=== PATIENT | male | born 1990 | race Caucasian/White ===

== ENCOUNTER 2016-08-05 16:16 | Emergency (ER) | payer MEDICAID ==
[~2016-08-05] VITALS: Ht 167.6 cm; Wt 100.0 kg
[~2016-08-05 16:16] MED LIST: CEPH-443 PO; CIPR500T4 PO; GENT5DRO28 RIGHT EYE; HYDR-3498 PO; Hydrocodone Bit/Acetaminophen PO; IBUP-1542 PO; METR500T PO
[2016-08-05] MEDS ORDERED: SOD CHLORIDE 0.9% 1,000 ML IV STA (16:41)
[2016-08-05] MEDS ORDERED: morphine 4 MG/ML VIAL IV STA ×2 (16:41→17:14)
[2016-08-05] MEDS ORDERED: ONDANSETRON 4 MG INJ IV STA ×2 (16:41→17:14)
--- NOTE | 2016-08-05 17:03 | ERD ---
ER Documentation Chief Complaint Date/Time DATE: 08/05/16 TIME: 16:57 Chief Complaint HPI Patient is a 25-year-old male who presents to the ED with sudden onset of epigastric and RUQ pain that started this morning at 4am. He states the pain has gotten worse since this morning and his constant. He has never had this pain in the past. He complains of nonbloody emesis that is slightly green and yellow. Denies diarrhea or constipation. States that his last bowel movement was today. He also admits to drinking 10 beers last night. He denies cough, chest pain, shortness of breath or difficulty breathing. Denies headache or dizziness. He is unable to keep fluids or food down. Denies leg pain or swelling. Denies urinary symtoms, denies dysuria, urgency, frequency or back pain. Denies hematuria. He is not taking any medication for his symptoms. States his pain is 10 out of 10 ROS All systems reviewed and are negative except as per history of present illness. Medications Home Meds Active Scripts Electrolyte,Oral (Pedialyte) 1,000 Ml Solution, 100 ML PO Q6 Y for VOMITTING for 28 Days, ML Prov:KAILYN THRASHER PA-C 08/05/16 Ondansetron Hcl* (Zofran*) 4 Mg Tablet, 4 MG PO Q6H for NAUSEA AND/OR VOMITING, #30 TAB Prov:KAILYN THRASHER PA-C 08/05/16 Gentamicin Sulfate* (Gentamicin Sulfate* Ophth) 0.3% - 5 Ml Drops, 1 DROP RIGHT EYE Q4 for 7 Days, EA Prov:LEXA BARON MD 10/24/15 Ibuprofen* (Motrin*) 600 Mg Tab, 600 MG PO Q6, #20 TAB Prov:LEXA BARON MD 10/24/15 Hydrocodone Bit-Acetaminophen* ([place]*) 5-325 Mg Tab, 1 TAB PO Q6 Y for PAIN, # 7 TAB Prov:ESVIN ROBLERO 03/14/15 Cephalexin* (Keflex*) 500 Mg Capsule, 500 MG PO BID for 7 Days, CAP Prov:SHEMAR HUDSON NP 11/04/14 Metronidazole* (Flagyl*) 500 Mg Tablet, 500 MG PO BID for 3 Days, TAB Prov:HILARIO ADAMS. 10/26/14 Ciprofloxacin Hcl* (Ciprofloxacin Hcl*) 500 Mg Tablet, 500 MG PO BID for 3 Days , TAB Prov:HILARIO ADAMS 10/26/14 [Hydrocodone Bit/Acetaminophen] 1 TAB TAB No Conflict Check, 1 TAB PO Q6H Y for MODERATE PAIN LEVEL 4-6, #14 TAB Prov:HILARIO ADAMS. 10/26/14 Allergies Allergies: Coded Allergies: Penicillins (Verified Allergy, Unknown, 10/25/14) Sulfa (Sulfonamide Antibiotics) (Verified Allergy, Unknown, 10/25/14) PMhx/Soc History of Surgery: Yes (APPENDECTOMY ) Anesthesia Reaction: No Hx Neurological Disorder: No Hx Respiratory Disorders: No Hx Cardiac Disorders: No Hx Psychiatric Problems: No Hx Miscellaneous Medical Probl: No Hx Alcohol Use: Yes (LAST DRINK 10+ BEERS LAST NIGHT) Hx Substance Use: No Hx Tobacco Use: No FmHx Family History: No coronary disease, No diabetes, No other Physical Exam Vitals Vital Signs Date Time Temp Pulse Resp B/P Pulse Ox O2 Delivery O2 Flow Rate FiO2 08/05/16 19:04 98.6 68 18 104/60 100 08/05/16 18:53 98.7 68 18 104/56 Physical Exam GENERAL: Well-developed, well-nourished male. Appears in mild distress. NECK: Supple. No lymphadenopathy or thyromegaly. No meningismus. negative kernig. negative brudinski. LUNG: Clear to auscultation bilaterally. No rhonchi, wheezing, rales or coarse breath sounds. HEART: Regular rate and rhythm. No murmurs, rubs or gallops. ABDOMEN: No scars, ecchymosis or rashes noted. Soft, and nondistended. Positive bowel sounds in all four quadrants. No rebound tenderness, no guarding. (-) McBurneys point tenderness. No CVA tenderness. unable to fully do examination as patient is in extreme pain, however he stated tenderness in ruq and epigastric region. BACK: No midline tenderness. Extremities: Equal pulses bilaterally. No peripheral clubbing, cyanosis or edema. No unilateral leg swelling. SKIN: Normal color. Warm and dry. No rashes or lesions. Capillary refill < 2 seconds Result Diagram: 08/05/16 1705 08/05/16 1705 Results 24 hrs Laboratory Tests Test 08/05/16 16:57 08/05/16 17:05 Urine Color LT. YELLOW Urine Clarity CLEAR Urine pH 8.0 Urine Specific [place] 1.015 Urine Ketones NEGATIVE Urine Nitrite NEGATIVE Urine Bilirubin NEGATIVE Urine Urobilinogen 0.2 E.U./dL Urine Leukocyte Esterase NEGATIVE Urine Microscopic RBC NONE SEEN/HPF Urine Microscopic WBC 0-2/HPF Urine Hemoglobin NEGATIVE Urine Glucose NEGATIVE% Urine Total Protein 1+ White Blood Count 11.310^3/ul Red Blood Count 4.9810^6/ul Hemoglobin 14.9g/dl Hematocrit 43.9% Mean Corpuscular Volume 88.2fl Mean Corpuscular Hemoglobin 29.9pg Mean Corpuscular Hemoglobin Concent 33.9g/dl Red Cell Distribution Width 13.9% Platelet Count 29099^3/UL Mean Platelet Volume 9.2fl Neutrophils % 82.7% Lymphocytes % 13.2% Monocytes % 3.2% Eosinophils % 0.0% Basophils % 0.4% Nucleated Red Blood Cells % 0.0/100WBC Neutrophils # 9.410^3/ul Lymphocytes # 1.510^3/ul Monocytes # 0.410^3/ul Eosinophils # 0.010^3/ul Basophils # 0.010^3/ul Nucleated Red Blood Cells # 0.010^3/ul Sodium Level 140mmol/L Potassium Level 4.1mmol/L Chloride Level 104mmol/L Carbon Dioxide Level 18mmol/L Anion Gap 22 Blood Urea Nitrogen 10mg/dl Creatinine 0.90mg/dl Glucose Level 132mg/dl Calcium Level 10.0mg/dl Total Bilirubin 0.3mg/dl Direct Bilirubin 0.00mg/dl Indirect Bilirubin 0.3mg/dl Aspartate Amino Transf (AST/SGOT) 41IU/L Alanine Aminotransferase (ALT/SGPT) 55IU/L Alkaline Phosphatase 118IU/L Total Protein 9.1g/dl Albumin 5.1g/dl Globulin 4.00g/dl Albumin/Globulin Ratio 1.27 Lipase 73U/L Current Medications Medications (Trade) Dose Ordered Sig/Darrian Route PRN Reason Start Time Stop Time Status Last Admin Dose Admin Sodium Chloride (NS) 1,000 ml @ 1,000 mls/hr Q1H STAT IV 08/05/16 16:41 08/05/16 17:40 DC 08/05/16 16:50 Morphine Sulfate (morphine) 4 mg ONCE STAT IV 08/05/16 16:41 08/05/16 16:42 DC 08/05/16 16:50 Ondansetron HCl (Zofran Inj) 4 mg ONCE STAT IV 08/05/16 16:41 08/05/16 16:42 DC 08/05/16 16:50 Morphine Sulfate (morphine) 4 mg ONCE STAT IV 08/05/16 17:14 08/05/16 17:15 DC 08/05/16 17:17 Ondansetron HCl (Zofran Inj) 4 mg ONCE STAT IV 08/05/16 17:14 08/05/16 17:15 DC 08/05/16 17:17 Procedures/MDM ER COURSE: I kept the patient and/or family informed of laboratory and diagnostic imaging results throughout the emergency room course. EKG, MONITORS, & DIAGNOSTIC IMAGING: [place] [id number] Radiology Main Line: [phone] DIAGNOSTIC IMAGING REPORT Patient: SULLY CASTILLO : 1990 Age: 25 Sex: M MR #: [id number] DOS: 08/05/16 1657 Ordering MD: KAILYN THRASHER PA-C Location: [facility] Room/Bed: PROCEDURE: US right upper quadrant CLINICAL INDICATION: Abdominal pain TECHNIQUE: Multiple real-time images were acquired of the patient's right upper abdomen utilizing a high resolution transducer. COMPARISON: None available FINDINGS: Liver: Increased echogenicity with normal contour and top normal size but no evidence of masses or ductal dilatation. Normal directional blood flow is seen within the patent main portal vein. The maximum dimension estimated at 18.1 cm . Gallbladder: Normal. No sonographic Worrell's sign is reported. Common bile duct: Normal; 3.8 mm. There is no evidence for choledocholithiasis. Right Kidney: Normal; maximum length measured at approximately 10 cm. Pancreas: Obscured by bowel gas. RPTAT:HJJR IMPRESSION: 1. Hepatic steatosis with top normal size liver but no evidence of gallbladder pathology. 2. Bowel gas obscures evaluation of the pancreas. Physician Marty Date Time Electronically viewed and signed by Physician Marty on 08/05/2016 17:32 JR/ CC: KAILYN THRASHER PA-C [place] [id number] Radiology Main Line: [phone] DIAGNOSTIC IMAGING REPORT Patient: SULLY CASTILLO : 1990 Age: 25 Sex: M MR #: [id number] DOS: 08/05/16 0000 Ordering MD: KAILYN THRASHER PA-C Location: [facility] Room/Bed: PROCEDURE: CT Abdomen and Pelvis without contrast. CLINICAL INDICATION: Abdominal pain. TECHNIQUE: Routine axial tomographic images of the abdomen and pelvis were obtained from the domes the diaphragm to the symphysis pubis. The patient was scanned withoutoral or intravenous contrast. Coronal and sagittal reformatted images were obtained from the axial source images. Images were reviewed on a high-resolution PACS workstation. The total exam CTDI equals 19.97 mGy and the total exam DLP equals 1186.85 mGy-cm. One or more of the following dose reduction techniques were used: Automated exposure control, adjustment of the mA and / or kV according to patient size, or use of iterative reconstruction technique. COMPARISON: CT abdomen and pelvis dated 10/25/2014 FINDINGS: There is mild motion artifact, limiting evaluation. The visualized portions of the lung bases are clear. Evaluation of the intra-abdominal solid organs is somewhat limited on this noncontrast examination. The liver appears normal in size. There is no intra or extrahepatic biliary dilatation. The gallbladder is unremarkable by CT criteria. The spleen, pancreas, and adrenal glands are unremarkable. The kidneys are symmetric in size. No renal, ureteral, or bladder calculi are identified. No perinephric inflammatory changes are identified. The urinary bladder is grossly unremarkable. The bowel demonstrates normal course and caliber. There is no evidence of bowel obstruction. The appendix is surgically absent. The pelvic organs are grossly unremarkable. No intraperitoneal free fluid, free air, or abscess is identified. No retroperitoneal, mesenteric, or inguinal lymphadenopathy is identified. The aorta is normal in caliber. The osseous structures are unremarkable. No significant subcutaneous soft tissue abnormalities are seen. IMPRESSION: 1. Limited noncontrast CT of the abdomen and pelvis with mild motion artifact. No acute intra-abdominal abnormality identified. 2. Status post appendectomy. RPTAT: HH .Edna Orozco MD, MD Date Time Electronically viewed and signed by .Edna Orozco MD, on 08/05/2016 18 :18 .G/ CC: KAILYN THRASHER PA-C MEDICATIONS: IV fluids, morphine, Zofran. Tolerated well with no adverse reaction. Seen improvement in symptoms. LAB INTERPRETATION: CBC showed no evidence of systemic infection or severe anemia. CMP showed no evidence of electrolyte abnormalities, severe acidosis, alkalosis, renal failure , or liver disease. Lipase showed no evidence of acute pancreatitis. UA showed no evidence of leukocytes, nitrites or hematuria. MEDICAL DECISION MAKING: This is a 25-year-old male who presents with vomiting 1 day. Vital signs were reviewed. Patient is afebrile. Patient is not hypoxic. Patient likely has vomiting of unknown etiology. I reexamined patient after medication was given, patient seen improvement in symptoms and states that he is ready to go home. Low suspicion for ACS, AAA, perforated ulcer, bowel obstruction, cholecystitis, choledocholithiasis, cholangitis, pancreatitis, hepatic abscess, appendicitis, diverticulitis, gastroenteritis, hepatitis, peptic ulcer disease, HELLP syndrome. His lipase is within normal limits and I have low suspicion for pancreatitis. DISCHARGE: At this time, patient is stable for discharge and outpatient management with no new complaints during the ER course. Patient was sent home with Raquel Solis. Patient will be discharged home with instructions to recheck for new or worsening symptoms such as fever, nausea, weakness, LOC and to follow up with primary care in the next 1-2 days. Patient was advised to return to the ER for any new or worsening symptoms. Plan was discussed and patient and/or family understands and agrees. Home instructions were given. Departure Diagnosis: Primary Impression: Vomiting Vomiting type: unspecified Vomiting Intractability: non-intractable Nausea presence: with nausea Qualified Code: R11.2 - Non-intractable vomiting with nausea, unspecified vomiting type Condition: Stable KAILYN THRASHER PA-C Aug 05, 2016 17:03
[2016-08-05 17:18] LABS: ADD SCAN DIFF NO
[2016-08-05 17:20] LABS: BASOPHILS % 0.4 % (0.0-2.0); HEMATOCRIT 43.9 % (42.0-52.0); HEMOGLOBIN 14.9 g/dl (14.0-18.0); LYMPHOCYTES # 1.5 10^3/ul (0.8-2.9); LYMPHOCYTES % 13.2 % (15.0-51.0); MEAN CORPUSCULAR HEMOGLOBIN 29.9 pg (29.0-33.0); MEAN CORPUSCULAR HGB CONC 33.9 g/dl (32.0-37.0); MEAN CORPUSCULAR VOLUME 88.2 fl (82.0-101.0); MEAN PLATELET VOLUME 9.2 fl (7.4-10.4); MONOCYTE # 0.4 10^3/ul (0.3-0.9); MONOCYTES % 3.2 % (0.0-11.0); NEUTROPHIL # 9.4 10^3/ul (1.6-7.5); NEUTROPHILS % 82.7 % (39.0-77.0); PLATELET COUNT 321 10^3/UL (140-415); RED BLOOD COUNT 4.98 10^6/ul (4.70-6.10); RED CELL DISTRIBUTION WIDTH 13.9 % (11.5-14.5); WHITE BLOOD COUNT 11.3 10^3/ul (4.8-10.8)
[2016-08-05 17:28] LABS: ALBUMIN 5.1 g/dl (3.3-4.9)
[2016-08-05 17:29] LABS: POTASSIUM 4.1 mmol/L (3.5-5.1)
[2016-08-05 17:31] LABS: BILIRUBIN,INDIRECT 0.3 mg/dl (0-1.1); BILIRUBIN,TOTAL 0.3 mg/dl (0.2-1.3); CREATININE 0.9 mg/dl (0.61-1.24)
[2016-08-05 17:32] LABS: ALBUMIN/GLOBULIN RATIO 1.27; TOTAL PROTEIN 9.1 g/dl (6.1-8.1)
--- NOTE | 2016-08-05 17:32 | RADRPT ---
PROCEDURE: US right upper quadrant CLINICAL INDICATION: Abdominal pain TECHNIQUE: Multiple real-time images were acquired of the patient's right upper abdomen utilizing a high resolution transducer. COMPARISON: None available FINDINGS: Liver: Increased echogenicity with normal contour and top normal size but no evidence of masses or ductal dilatation. Normal directional blood flow is seen within the patent main portal vein. The max imum dimension estimated at 18.1 cm . Gallbladder: Normal. No sonographic Worrell's sign is reported. Common bile duct: Normal; 3.8 mm. There is no evidence for choledocholithiasis. Right Kidney: Normal; maximum length measured at approximately 10 cm. Pancreas: Obscured by bowel gas. RPTAT:HJJR IMPRESSION: 1. Hepatic steatosis with top normal size liver but no evidence of gallbladder pathology. 2. Bowel gas obscures evaluation of the pancreas. Physician Marty Date Time Electronically viewed and signed by Physician Marty on 08/05/2016 17:32 /
[2016-08-05 17:35] LABS: ADD UMIC YES; URINE BILIRUBIN (Dip) NEGATIVE (NEGATIVE); URINE BLOOD (Dip) NEGATIVE (NEGATIVE); URINE COLOR LT. YELLOW (YELLOW); URINE GLUCOSE (Dip) NEGATIVE (NEGATIVE); URINE KETONES (Dip) NEGATIVE (NEGATIVE); URINE LEUKOCYTE ESTERASE (Dip) NEGATIVE (NEGATIVE); URINE NITRITE (Dip) NEGATIVE (NEGATIVE); URINE TOTAL PROTEIN (Dip) 1+ (NEGATIVE); URINE UROBILINOGEN (Dip) 0.2 E.U./dL (0.1-1.0)
[2016-08-05 18:03] LABS: URINE RBCS NONE SEEN /HPF (0)
--- NOTE | 2016-08-05 18:18 | RADRPT ---
PROCEDURE: CT Abdomen and Pelvis without contrast. CLINICAL INDICATION: Abdominal pain. TECHNIQUE: Routine axial tomographic images of the abdomen and pelvis were obtained from the domes the diaphragm to the symphysis pubis. The patient was scanned withoutoral or intravenous contrast. Coronal and sagittal reformatted images were obtained from the axial source images. Images were re viewed on a high-resolution PACS workstation. The total exam CTDI equals 19.97 mGy and the total exa m DLP equals 1186.85 mGy-cm. One or more of the following dose reduction techniques were used: Aut omated exposure control, adjustment of the mA and / or kV according to patient size, or use of itera tive reconstruction technique. COMPARISON: CT abdomen and pelvis dated 10/25/2014 FINDINGS: There is mild motion artifact, limiting evaluation. The visualized portions of the lung bases are clear. Evaluation of the intra-abdominal solid organs is somewhat limited on this noncontrast ex amination. The liver appears normal in size. There is no intra or extrahepatic biliary dilatation. The gallbladder is unremarkable by CT criteria. The spleen, pancreas, and adrenal glands are unre markable. The kidneys are symmetric in size. No renal, ureteral, or bladder calculi are identified. No perine phric inflammatory changes are identified. The urinary bladder is grossly unremarkable. The bowel demonstrates normal course and caliber. There is no evidence of bowel obstruction. The a ppendix is surgically absent. The pelvic organs are grossly unremarkable. No intraperitoneal free fluid, free air, or abscess is identified. No retroperitoneal, mesenteric, or inguinal lymphadenopat hy is identified. The aorta is normal in caliber. The osseous structures are unremarkable. No significant subcutaneous soft tissue abnormalities are seen. IMPRESSION: 1. Limited noncontrast CT of the abdomen and pelvis with mild motion artifact. No acute intra-abdo vic abnormality identified. 2. Status post appendectomy. RPTAT: HH .Edna Orozco MD, Date Time Electronically viewed and signed by .Edna Orozco MD, MD on 08/05/2016 18:18 .G/
[2016-08-05] MEDS ORDERED: ELEC100080 PO (18:22)
[2016-08-05] MEDS ORDERED: ONDA4TAB8 PO (18:22)
[2016-08-05 18:53] VITALS: BP 104/56; PULSE 68; RESP 18; TEMP 98.7
[2016-08-05 19:04] VITALS: Ht 167.6 cm; Wt 100.0 kg
== END 2016-08-05 19:06 | disposition home or self-care (01) ==
LOC: FTE 16:16
DX: R11.2 Nausea with vomiting, unspecified (principal)
CPT/HCPCS: 74176; 76705; 80053; 81001; 83690; 85025; 96374; 96375; 96376; J2270; J2405; J7030; Z7502; 81003